=== PATIENT | male | born 1970 | race Caucasian/White ===

== ENCOUNTER 2019-09-16 07:37 | Outpatient (CLI) | payer OTHER, SELFPAY ==
[2019-09-16 07:50] LABS: Basophils Absolute Auto 0.05 K/mm3 (0.00-0.10); Basophils Percent Auto 0.6 % (0.0-1.0); Eosinophils Absolute Auto 0.27 K/mm3 (0.02-0.50); Hematocrit 42.2 % (40.0-54.0); Hemoglobin 14.1 g/dL (14.0-18.0); Immature Granulocyte Absolute 0.02 K/mm3 (0.00-0.00); Immature Granulocyte Percent A 0.2 % (0.0-0.0); Lymphocytes Absolute Auto 2.19 K/mm3 (1.10-4.50); Lymphocytes Percent Auto 24.1 % (18.0-42.0); Mean Corpuscular HGB Conc 33.4 g/dL (32.0-36.0); Mean Corpuscular Hemoglobin 28.8 pg (27.0-31.0); Mean Corpuscular Volume 86.3 fL (78.0-102.0); Mean Platelet Volume 11.4 fl (8.7-11.0); Monocytes Absolute Auto 0.78 K/mm3 (0.10-0.90); Monocytes Percent Auto 8.6 % (2.0-11.0); Neutrophils Absolute Auto 5.8 K/mm3 (1.7-7.2); Neutrophils Percent Auto 63.5 % (50.0-70.0); Platelet Count Result 224 K/mm3 (150-420); Red Blood Count 4.89 M/mm3 (4.70-6.10); White Blood Count 9.1 K/mm3 (4.8-10.8)
[2019-09-16 08:00] LABS: Hemoglobin A1C 5.8 % (<5.7)
[2019-09-16 08:45] LABS: Cholesterol 108 mg/dL (0-200); HDL Direct 35 mg/dL (40-60); LDL Cholesterol Calculated 50 mg/dL (<130); Triglycerides 114 mg/dL (0-150)
[2019-09-16 09:07] LABS: Thyroid Stimulating Hormone Reflex 1.92 u/IU/mL (0.36-3.74)
== END 2019-09-16 07:38 | disposition home or self-care (01) ==
PROVIDERS: PCP Family Medicine; Visit Provider Family Medicine
DX: R73.09 Other abnormal glucose (principal); I10 Essential (primary) hypertension
CPT/HCPCS: 36415; 80061; 83036; 84443; 85025

== ENCOUNTER 2019-09-23 10:40 | Outpatient (CLI) | payer OTHER, SELFPAY | END 2019-09-23 10:41 | disposition home or self-care (01) | PROVIDERS: PCP Family Medicine; Visit Provider Audiologist | DX: H93.19 Tinnitus, unspecified ear (principal) | CPT/HCPCS: 92557; 92567 ==

== ENCOUNTER 2020-03-30 10:41 | Outpatient (CLI) | payer OTHER, SELFPAY ==
[2020-03-30 10:59] LABS: Hemoglobin A1C 6.1 % (<5.7)
[2020-03-30 12:01] LABS: Cholesterol 127 mg/dL (0-200); HDL Direct 36 mg/dL (40-60); LDL Cholesterol Calculated 54 mg/dL (<130); Triglycerides 186 mg/dL (0-150)
== END 2020-03-30 10:42 | disposition home or self-care (01) ==
LOC: CHSLAB 10:44
PROVIDERS: PCP Family Medicine; Visit Provider Family Medicine
DX: E78.5 Hyperlipidemia, unspecified (principal); Z86.39 Personal history of other endocrine, nutritional and metabolic disease
CPT/HCPCS: 36415; 80061; 83036

== ENCOUNTER 2020-10-06 07:47 | Outpatient (CLI) | payer OTHER, SELFPAY ==
[2020-10-06 08:15] LABS: Hemoglobin A1C 5.9 % (<5.7)
== END 2020-10-06 07:48 | disposition home or self-care (01) ==
PROVIDERS: PCP Family Medicine; Visit Provider Family Medicine
DX: E78.5 Hyperlipidemia, unspecified (principal); I10 Essential (primary) hypertension; Z86.39 Personal history of other endocrine, nutritional and metabolic disease
CPT/HCPCS: 36415; 83036

== ENCOUNTER 2023-01-18 09:54 | Outpatient (CLI) | payer OTHER, SELFPAY ==
[2023-01-22 18:28] LABS: H pylori, Urea Breath NOT DETECTED (NOT DETECTED)
== END 2023-01-18 09:55 | disposition home or self-care (01) ==
LOC: CHSLAB 09:57
PROVIDERS: PCP Family Medicine; Visit Provider Family Medicine
DX: K21.9 Gastro-esophageal reflux disease without esophagitis (principal)
CPT/HCPCS: 83013

== ENCOUNTER 2024-07-10 07:46 | Outpatient (CLI) | payer OTHER, SELFPAY ==
[2024-07-10 07:57] LABS: Basophils Absolute Auto 0.09 K/mm3 (0.00-0.10); Basophils Percent Auto 0.9 % (0.0-1.0); Eosinophils Absolute Auto 0.24 K/mm3 (0.02-0.50); Eosinophils Percent Auto 2.4 % (1.0-6.0); Hematocrit 43.2 % (40.0-54.0); Hemoglobin 14.7 g/dL (14.0-18.0); Immature Granulocyte Absolute 0.05 K/mm3 (0.00-0.00); Immature Granulocyte Percent A 0.5 % (0.0-0.0); Lymphocytes Absolute Auto 2.39 K/mm3 (1.10-4.50); Mean Corpuscular Hemoglobin 28.5 pg (27.0-31.0); Mean Corpuscular Volume 83.9 fL (78.0-102.0); Mean Platelet Volume 11.4 fl (8.7-11.0); Monocytes Absolute Auto 0.89 K/mm3 (0.10-0.90); Neutrophils Absolute Auto 6.28 K/mm3 (1.70-7.20); Neutrophils Percent Auto 63.2 % (50.0-70.0); Platelet Count Result 221 K/mm3 (150-420); Red Blood Count 5.15 M/mm3 (4.70-6.10); Red Cell Distribution Width 12.9 % (11.6-14.4); White Blood Count 9.9 K/mm3 (4.8-10.8)
[2024-07-10 08:25] LABS: Hemoglobin A1C 6.4 % (<5.7)
[2024-07-10 08:54] LABS: Alanine Aminotransferase 44 U/L (16-63); Albumin Level 3.7 g/dL (3.4-5.0); Alkaline Phosphatase 123 U/L (46-116); Anion Gap 11 mmol/L (4-12); Aspartate Amino Transferase 15 U/L (15-37); Bilirubin,Total 0.5 mg/dL (0.00-1.00); Blood Urea Nitrogen 13 mg/dL (7-18); Carbon Dioxide 26 mmol/L (21-32); Chloride 105 mmol/L (98-108); Cholesterol 109 mg/dL (0-200); Estimated Glomerular Filt Rate > 60; Glucose 129 mg/dL (70-99); HDL Direct 35 mg/dL (40-60); LDL Cholesterol Calculated 49 mg/dL (<130); Osmolality Calculated 296 mOsm/kg (285-295); Potassium 4.4 mmol/L (3.5-5.1); Sodium 142 mmol/L (136-145); Total Protein 6.4 g/dL (6.4-8.2); Triglycerides 127 mg/dL (0-150)
== END 2024-07-10 07:47 | disposition home or self-care (01) ==
LOC: CHSLAB 07:48
PROVIDERS: PCP Family Medicine; Visit Provider Family Medicine
DX: E11.9 Type 2 diabetes mellitus without complications (principal); Z86.39 Personal history of other endocrine, nutritional and metabolic disease; I10 Essential (primary) hypertension
CPT/HCPCS: 36415; 80053; 80061; 83036; 85025